=== PATIENT | female | born 2000 | race Two or more races ===

== ENCOUNTER 2023-07-28 03:24 | Emergency (ER) | payer OTHER ==
[~2023-07-28] VITALS: Ht 152.4 cm; Wt 63.4 kg
[2023-07-28 05:37] VITALS: BP 144/77; PULSE 64; RESP 16; TEMP 98.3; O2SAT 98
== END 2023-07-28 06:15 | disposition home or self-care (01) ==
LOC: ER 03:24
DX: M25.511 Pain in right shoulder (principal); M79.18 Myalgia, other site; X58.XXXA Exposure to other specified factors, initial encounter; Y93.89 Activity, other specified; Y92.69 Other specified industrial and construction area as the place of occurrence of the external cause; Y99.8 Other external cause status
CPT/HCPCS: 73030